=== PATIENT | female | born 1955 | race Caucasian/White ===

== ENCOUNTER 2021-01-12 19:19 | Inpatient (IN) | payer OTHER ==
[~2021-01-12] VITALS: Ht 167.6 cm; Wt 96.6 kg
[2021-01-12 19:35] LABS: RED BLOOD COUNT 4.47 M/UL (4.00-5.10); WHITE BLOOD COUNT 7.9 K/UL (4.5-11.0)
[2021-01-13] MEDS ORDERED: LISINOPRIL10 MG PO (00:59)
[2021-01-13] MEDS ORDERED: TOPROL XL 50 MG50 MG PO (01:00)
[2021-01-13] MEDS ORDERED: SINGULAIR10 MG PO (01:00)
[2021-01-13] MEDS ORDERED: CRESTOR 10 MG T10 MG PO (01:00)
[2021-01-13] MEDS ORDERED: CELEXA 20MG TAB20 MG PO (01:01)
[2021-01-13] MEDS ORDERED: ADVAIR HFA 45/212 GM INH (01:01)
[2021-01-14 06:47] LABS: HEMOGLOBIN 11.3 gm/dl (12.3-15.3); WHITE BLOOD COUNT 7.4 K/UL (4.5-11.0)
[2021-01-14 06:52] LABS: RED BLOOD COUNT 3.98 M/UL (4.00-5.10)
[2021-01-14] MEDS ORDERED: HYDROCODON-ACE1 EAC2 PO (18:01)
[2021-01-15 07:11] LABS: HEMOGLOBIN 10.8 gm/dl (12.3-15.3); RED BLOOD COUNT 3.75 M/UL (4.00-5.10)
[2021-01-15 07:14] LABS: WHITE BLOOD COUNT 10.1 K/UL (4.5-11.0)
[2021-01-15] MEDS ORDERED: ENOXAPARIN40 MG/0.4 SC (15:13)
== END 2021-01-15 16:46 | disposition home or self-care (01) | DRG 494 ==
LOC: ER1 19:19 → CDU 21:28 → M/S 21:28
PROVIDERS: Emergency Medicine; Orthopaedic Surgery; Physician Assistant Medical; ADMIT Internal Medicine
PROC: 2W3LX1Z Immobilization of Right Lower Extremity using Splint (ICD-10-PCS; 2021-01-12)
PROC: 0QSG04Z Reposition Right Tibia with Internal Fixation Device, Open Approach (ICD-10-PCS; 2021-01-14)
PROC: 0QSJ04Z Reposition Right Fibula with Internal Fixation Device, Open Approach (ICD-10-PCS; principal; 2021-01-14 13:00)
DX: S82.851A Displaced trimalleolar fracture of right lower leg, initial encounter for closed fracture (principal); W01.0XXA Fall on same level from slipping, tripping and stumbling without subsequent striking against object, initial encounter; I10 Essential (primary) hypertension; J45.909 Unspecified asthma, uncomplicated; Z20.822 Contact with and (suspected) exposure to COVID-19; E78.5 Hyperlipidemia, unspecified; E78.00 Pure hypercholesterolemia, unspecified; Z90.49 Acquired absence of other specified parts of digestive tract; Z90.710 Acquired absence of both cervix and uterus; Z90.89 Acquired absence of other organs; Z98.49 Cataract extraction status, unspecified eye; Z88.0 Allergy status to penicillin; Z88.5 Allergy status to narcotic agent; Z82.49 Family history of ischemic heart disease and other diseases of the circulatory system; Y92.89 Other specified places as the place of occurrence of the external cause; Y93.89 Activity, other specified
CPT/HCPCS: 27808; 36415; 71045; 72170; 72192; 73590; 73600; 73610; 76000; 80048; 85025; 85027; 85610; 86850; 86900; 86901; 93005; 97162; 97166; 97530; 97535; 99284; C1713; J0690; J1100; J1170; J1885; J2001; J2250; J2405; J2704; J2795; J3010; J7030; J7120; U0002